=== PATIENT | female | born 1960 | race Two or more races ===

== ENCOUNTER 2025-11-15 09:21 | Outpatient (CLI) | payer MEDICARE ==
[2025-11-15 10:31] LABS: Alanine Aminotransferase 18 U/L (7-40); Alkaline Phosphatase 68 U/L (46-116); Anion Gap 7 (5-15); BUN/Creatinine Ratio 16.7 (10.0-20.0); Blood Urea Nitrogen 13 mg/dL (9-23); Calcium 9.7 mg/dL (8.7-10.4); Carbon Dioxide 30 mmol/L (20-31); Chloride 106 mmol/L (98-107); Glucose 93 mg/dL (74-106); Potassium 4.4 mmol/L (3.5-5.1); Sodium 143 mmol/L (136-145); Total Protein 7.2 g/dL (5.7-8.2); Triglycerides 73 mg/dL (< 150)
[2025-11-15 10:32] LABS: Albumin 4.3 g/dL (3.2-4.8); Cholesterol 193 mg/dL (< 200)
[2025-11-15 10:33] LABS: Bilirubin, Total 0.5 mg/dL (0.2-1.0); HDL Cholesterol 78 mg/dL (40-59)
[2025-11-15 10:38] LABS: Hematocrit 42.4 % (36.0-46.0); Hemoglobin 14.4 g/dL (12.2-16.2); Mean Corpuscular Hemoglobin 30.5 pg (28.0-32.0); Mean Corpuscular Volume 90.0 fL (80.0-100.0); Nucleated Red Blood Cells % 0.1 %
== END 2025-11-15 17:00 | disposition home or self-care (01) ==
LOC: LAB 09:21
PROVIDERS: ATTEND Nurse Practitioner Family
DX: E78.00 Pure hypercholesterolemia, unspecified (principal); Z00.00 Encounter for general adult medical examination without abnormal findings
CPT/HCPCS: 36415; 80053; 80061; 85025